=== PATIENT | female | born 1990 | race Two or more races ===

== ENCOUNTER 2022-11-19 05:48 | Day surgery (SDC) | payer OTHER ==
[~2022-11-19 05:48] MED LIST: HUMALOG100 UNIT/2; LANTUS SOL100 UNIT/1; LEVO-T88 MCG PO
== END 2022-11-19 10:50 | disposition home or self-care (01) ==
LOC: CIR.AMB 05:48
PROVIDERS: ATTEND Student in an Organized Health Care Education/Training Program
DX: N93.8 Other specified abnormal uterine and vaginal bleeding (principal); N84.0 Polyp of corpus uteri; Z20.822 Contact with and (suspected) exposure to COVID-19; E03.9 Hypothyroidism, unspecified; E11.8 Type 2 diabetes mellitus with unspecified complications; Z79.4 Long term (current) use of insulin